=== PATIENT | female | born 1955 | race Caucasian/White ===

== ENCOUNTER 2017-08-23 02:45 | Emergency (ER) | payer MEDICAID, OTHER ==
[2017-08-23 02:58] VITALS: BMI 26.1
[2017-08-23 03:12] VITALS: RESP 18; TEMP 97.7
[2017-08-23] MEDS ORDERED: DiphenhydrAMINE 50 mg/ml Inj IVP STA (03:35)
--- NOTE | 2017-08-23 03:39 | ED PDOC ---
Arrival/HPI - General Chief Complaint: Allergic Reaction Time Seen by Provider: 08/23/17 03:09 - History of Present Illness Narrative History of Present Illness (Text): 61 year old female with PMH of diabetes, HTN, HLD, and coronary bypass surgery presents with diffuse rashes and pruritis for 2 days. She reports burning pain occurs due to her scratching as well. She denies any chest pain, heart palpitations, nausea, vomiting, constipation, diarrhea, dysuria, hematuria. (Wendi Villegas) Past Medical History - Provider Review Nursing Documentation Reviewed: Yes - Cardiac Hx Cardiac Disorders: Yes Hx Hypertension: Yes - Pulmonary Hx Respiratory Disorders: No - Neurological Hx Neurological Disorder: No - HEENT Hx HEENT Disorder: No - Renal Hx Renal Disorder: No - Endocrine/Metabolic Hx Endocrine Disorders: No - Hematological/Oncological Hx Blood Disorders: No - Integumentary Hx Dermatological Disorder: No - Musculoskeletal/Rheumatological Hx Musculoskeletal Disorders: No - Gastrointestinal Hx Gastrointestinal Disorders: No - Genitourinary/Gynecological Other/Comment: Ovarian cyst - Psychiatric Hx Psychophysiologic Disorder: No Hx Substance Use: No - Surgical History Hx Cardiac Catheterization: Yes Hx Coronary Artery Bypass Graft: Yes (Quad bypass) Hx Open Heart Surgery: Yes Other/Comment: 2 stent 10 years ago - Anesthesia Hx Anesthesia: Yes Family/Social History - Physician Review Nursing Documentation Reviewed: Yes Family/Social History: Unknown Family HX Smoking Status: Never Smoked Hx Alcohol Use: No Hx Substance Use: No Allergies/Home Meds Allergies/Adverse Reactions: Allergies aspirin Adverse Reaction (Verified 08/23/17 03:06) RASH shrimp Adverse Reaction (Verified 08/23/17 03:12) RASH Home Medications: Home Meds Medication Instructions Recorded Confirmed Atorvastatin [Lipitor] 1 tab PO DAILY 08/23/17 08/23/17 Clopidogrel [Plavix] 1 tab PO DAILY 08/23/17 08/23/17 Losartan Potassium [Losartan 1 tab PO DAILY 08/23/17 08/23/17 Potassium] Metoprolol Tartrate [Lopressor] 1 tab PO DAILY 08/23/17 08/23/17 Review of Systems - Physician Review All systems were reviewed & negative as marked: Yes - Review of Systems Constitutional: Normal Eyes: Normal ENT: Normal Respiratory: Normal Cardiovascular: Normal Gastrointestinal: Normal Genitourinary Female: Normal Skin: Rash (raised red rash resembling hives), Pruritis Neurological: Normal Physical Exam Vital Signs Reviewed: Yes Temperature: Afebrile Blood Pressure: Normal Pulse: Regular Respiratory Rate: Normal Appearance: Positive for: Well-Appearing Pain Distress: Mild Mental Status: Positive for: Alert and Oriented X 3 - Systems Exam Head: Present: Other (could not evaluate. she was wearing a head covering, so did not evaluate out of respect) Pupils: Present: PERRL Extroacular Muscles: Present: EOMI Nose (External): Present: Atraumatic Respiratory/Chest: Present: Clear to Auscultation Cardiovascular: Present: Regular Rate and Rhythm Abdomen: Present: Normal Bowel Sounds. No: Tenderness, Distention Upper Extremity: Present: Normal Inspection, Normal ROM, NORMAL PULSES Lower Extremity: Present: Normal Inspection, NORMAL PULSES, Normal ROM Neurological: Present: GCS=15, CN II-XII Intact, Speech Normal, Motor Func Grossly Intact Skin: Present: Rashes (raised erythematous rashes on bilateral upper extremities and abdomen) Psychiatric: Present: Alert, Oriented x 3, Normal Insight, Normal Concentration Vital Signs Temp Pulse Resp BP Pulse Ox 08/23/17 02:45 97.7 F 80 18 138/81 100 Medical Decision Making ED Course and Treatment: Impression: Tyrell Barrios is a 61 year old female who presents to the Emergency Department for skin rash that started 2 days ago. In agreement with resident note, which includes further HPI details. Patient was seen and evaluated with resident, came up with plan and treatment together. Plan: -- Benadryl -- Pepcid -- Reassess and disposition Progress Notes: (Wade Aragon) Impression: 61 year old female with PMH of diabetes, HTN, HLD, and CABG presents to the emergency department with itching and rash that started 2 days ago. Assessment: urticaria Plan: benadryl 25 mg IVP, pepcid 20 mg IVP for urticaria 08/23/17 04:49 Patient's urticaria has improved with benadryl and pepcid. Patient can be discharged with atarax and pepcid. (Wendi Villegas) - Medication Orders Current Medication Orders: Discontinued Medications Diphenhydramine HCl (Benadryl) 25 mg IVP STAT STA Stop: 08/23/17 03:36 Last Admin: 08/23/17 03:51 Dose: 25 mg IVP Administration Document 08/23/17 03:51 RG (Rec: 08/23/17 03:51 RG [facility] [id number]) Charges for Administration # of IVP Administrations 1 Famotidine (Pepcid) 20 mg IVP STAT STA Stop: 08/23/17 03:36 Last Admin: 08/23/17 03:51 Dose: 20 mg IVP Administration Document 08/23/17 03:51 RG (Rec: 08/23/17 03:51 RG [facility] [id number]) Charges for Administration # of IVP Administrations 1 - PA / PAN PUSHER / Resident Statement / has reviewed & agrees with the documentation as recorded. / has examined the patient and agrees with the treatment plan. Disposition/Present on Arrival - Present on Arrival Any Indicators Present on Arrival: No History of DVT/PE: No History of Uncontrolled Diabetes: No Urinary Catheter: No History of Decub. Ulcer: No History Surgical Site Infection Following: None - Disposition Have Diagnosis and Disposition been Completed?: Yes Disposition Time: 04:50 Patient Plan: Discharge - Disposition Diagnosis: Urticaria Disposition: HOME/ ROUTINE Patient Problems: Current Active Problems Problem Status Onset Urticaria Acute Condition: STABLE Discharge Instructions (ExitCare): Geetha Additional Instructions: TYRELL BARRIOS, thank you for letting us take care of you today. Your provider was Wade Aragon MD and Wendi Villegas DO and you were treated for skin problem. The emergency medical care you received today was directed at your acute symptoms. Please take the prescribed atarax and pepcid. It may take several days for your symptoms to resolve. Return to the Emergency Department if your symptoms worsen, do not improve, or if you have any other problems. Please contact your primary care doctor, Dr. Majano, for a follow up appointment in 1-2 days. Bring any paperwork you were given at discharge with you along with any medications you are taking to your follow up visit. Our treatment cannot replace ongoing medical care by a primary care provider outside of the emergency department. Thank you for allowing the [facility] team to be part of your care today. Prescriptions: Famotidine [Pepcid] 20 mg PO BID PRN 5 Days #10 tab PRN Reason: Allergy Symptoms hydrOXYzine HCl [Atarax] 25 mg PO Q8H PRN 5 Days #15 tab PRN Reason: Allergy Symptoms Forms: [facility] (Kazakh)
[2017-08-23 05:31] VITALS: BP 140/72; PULSE 73; O2SAT 98
== END 2017-08-23 05:10 | disposition home or self-care (01) ==
LOC: ED 02:45
DX: L50.0 Allergic urticaria (principal); E11.9 Type 2 diabetes mellitus without complications; I10 Essential (primary) hypertension; E78.5 Hyperlipidemia, unspecified
CPT/HCPCS: 96374; 96375; 99283; J1200